=== PATIENT | male | born 1955 | race Caucasian/White ===

== ENCOUNTER 2022-12-17 11:07 | Inpatient (IN) | payer MEDICARE, OTHER ==
[~2022-12-17] VITALS: Ht 175.3 cm; Wt 79.4 kg
--- NOTE | 2022-12-17 11:25 | NUR ---
RADHA FROM SNF FOR AGITATION AND AGRESSIVE BEHAVIOR TOWARDS STAFF SINCE YESTERDAY. PLACED PT ON GOWN.
--- NOTE | 2022-12-17 11:30 | NUR ---
SECURITY AT BEDSIDE FOR WANDING
--- NOTE | 2022-12-17 11:31 | NUR ---
[facility]
[2022-12-17] MEDS ORDERED: LORA-259 PO (12:05)
[2022-12-17] MEDS ORDERED: MAGN400O6 PO (12:05)
[2022-12-17] MEDS ORDERED: OLAN10TA3 PO (12:05)
[2022-12-17] MEDS ORDERED: FINA5TAB11 PO (12:05)
[2022-12-17] MEDS ORDERED: NIFE30TA2 PO (12:05)
[2022-12-17] MEDS ORDERED: LOSA50TA39 PO (12:05)
[2022-12-17] MEDS ORDERED: BISA10SU11 RC (12:05)
[2022-12-17] MEDS ORDERED: TAMS-12 PO (12:05)
[2022-12-17] MEDS ORDERED: NA P133E RC (12:05)
[2022-12-17] MEDS ORDERED: ACET-868 PO (12:05)
[2022-12-17] MEDS ORDERED: DIVA250T4 PO (12:05)
[2022-12-17] MEDS ORDERED: VALB40CA2 PO (12:05)
[2022-12-17 12:22] LABS: ALANINE AMINOTRANSFERASE 14 U/L (12-78); ALBUMIN 3.3 g/dL (3.4-5.0); ALCOHOL, BLOOD < 3 mg/dL (0-10); ALKALINE PHOSPHATASE 74 U/L (46-116); ASPARTATE AMINOTRANSFERASE 14 U/L (15-37); BILIRUBIN,DIRECT 0.1 mg/dL (0.0-0.2); BILIRUBIN,TOTAL 0.2 mg/dL (0.2-1.0); CALCIUM, SERUM 9.4 mg/dL (8.5-10.1); CARBON DIOXIDE 28 mmol/L (21-32); CHLORIDE 102 mmol/L (98-107); CREATININE 0.7 mg/dL (0.6-1.3); GLUCOSE 76 mg/dL (74-106); POTASSIUM 3.8 mmol/L (3.5-5.1); SODIUM SERUM 137 mmol/L (136-145); TOTAL PROTEIN, SERUM 7.3 g/dL (6.4-8.2); UREA NITROGEN, BLOOD 7 mg/dL (7-18)
[2022-12-17 12:24] LABS: BASOPHILS % (AUTO) 0.5 % (0.0-2.0); EOSINOPHILS % (AUTO) 0.9 % (0.0-6.0); HEMATOCRIT 38 % (39-51); HEMOGLOBIN 12.7 g/dL (13.5-17.5); LYMPHOCYTES # (AUTO) 1.1 K/uL (0.8-4.8); LYMPHOCYTES % (AUTO) 16.7 % (20.0-44.0); MEAN CORPUSCULAR HGB CONC 34 g/dl (31.0-36.0); MEAN CORPUSCULAR VOLUME 87 fL (80-96); MONOCYTES # (AUTO) 0.7 K/uL (0.1-1.30); NEUTROPHILS # (AUTO) 4.8 K/uL (1.8-8.9); NEUTROPHILS % (AUTO) 71.9 % (43.0-81.0); PLATELET COUNT (AUTO) 271 K/uL (150-450); RED BLOOD CELL COUNT(AUTO) 4.35 MIL/uL (4.5-6.0); WHITE BLOOD COUNT (AUTO) 6.7 K/uL (4.3-11.0)
--- NOTE | 2022-12-17 12:45 | NUR ---
URINE COLLECTED AND SENT TO LAB.
[2022-12-17 13:10] LABS: BILIRUBIN,URINE NEGATIVE (NEGATIVE); COLOR,URINE YELLOW (YELLOW); LEUKOCYTE ESTERASE ,URINE 3+ (NEGATIVE); NITRITE, URINE NEGATIVE (NEGATIVE); PROTEIN,URINE NEGATIVE (NEGATIVE); UGLUCOSE NEGATIVE (NEGATIVE); UROBILINOGEN,URINE 0.2 EU/dL (0.2)
[2022-12-17 13:46] LABS: BACTERIA,URINE Few /HPF (None Seen); RBC,URINE NONE SEEN /HPF (0-2); SQUAMOUS EPITHELIAL CELL,UR Few /HPF (None Seen)
--- NOTE | 2022-12-17 15:11 | NUR ---
BED ASSIGNED 309.2, ADMITTING AWARE
--- NOTE | 2022-12-17 15:27 | NUR ---
RIGHT FOREARM IV 20G
[2022-12-17] MEDS ORDERED: ACETAMINOPHEN 325 MG TABLET PO PRN ×2 (15:30)
[2022-12-17] MEDS ORDERED: Z GUARD REMEDY 4 OZ OINT TP PRN (15:30)
[2022-12-17] MEDS ORDERED: ONDANSETRON HCL/PF 4 MG/2 ML VIAL IVP PRN (15:30)
[2022-12-17] MEDS ORDERED: NA PHOS,M-B/NA PHOS,DI-BA 1 EA ENEMA RC PRN (15:30)
[2022-12-17] MEDS ORDERED: IV NS 0.9% 1,000 ML IV PRN (15:30)
[2022-12-17] MEDS ORDERED: MAGNESIUM HYDROXIDE 30 ML UDC PO PRN (15:30)
[2022-12-17] MEDS ORDERED: ZOLPIDEM TARTRATE 5 MG TABLET PO PRN (15:30)
[2022-12-17] MEDS ORDERED: MAG HYDROX/AL HYDROX/SIMETH 30 ML UDC PO PRN (15:30)
[2022-12-17] MEDS ORDERED: BISACODYL SUPP (10 MG) 10 MG/SUPP.RECT SUPP.RECT RC PRN (15:30)
--- NOTE | 2022-12-17 15:36 | NUR ---
GAVE REPORT TO TAMMY ROBERTS FOR CONTINUATION OF CARE.
[2022-12-17 16:00] VITALS: BP 135/99
[2022-12-17] MEDS ORDERED: CEFTRIAXONE 1 G in IV D5W 50 ML IV SCH (16:00)
--- NOTE | 2022-12-17 16:00 | NUR ---
PHOTOLETTERING MACHINE OPERATOR NOTES Received patient from ER via [facility]. Patient is a/o x1, with episodes of confusion. Patient oriented to room and how to use thecall light. On room air, breathing even and unlabored. NO SOB or s/s of distress noted. Refused inventory of belongings. IV access on GUNNER #20G sl, patent, intact and flushing well. Patient refuses skin assessment. Safety precautions in place: bed in low, locked position; siderails up x 2. Call light within reach. Will continue to monitor the patient.
--- NOTE | 2022-12-17 17:00 | NUR ---
RN NOTE PATIENT REFUSED IV ANTIBIOTIC, PULLED OUT IV LINE AND AGITATED.CHARGED NURSE AWARE. INFORMED DR. DOWNEY WITH ORDERS MADE TO GIVE ATIVAN IM Q6H PRN. PSYCH CONSULT PLACED, FACE SHEET FAXED OVER TO [employer]. WILL CONTINUE TO MONITOR PATIENT
[2022-12-17] MEDS: OLANZAPINE 10 MG TABLET PO SCH (17:10)
[2022-12-17] MEDS: DIVALPROEX SODIUM 250 MG TABLET.DR PO SCH (17:10)
--- NOTE | 2022-12-17 19:30 | NUR ---
MS RN OPENING NOTE RECEIVED PATIENT IN BED, AWAKE, ALERT AND ORIENTED X2. PATIENT IS A NEW ADMIT AND PER REPORT FROM OUTGOING SHIFT, PATIENT REFUSED TO BE ASSESSED AND WAS REFUSING CARE. HE HAS SEVERAL BAGS WITH HIM BUT PATIENT REFUSED TO BE CHECKED AND SCREAMS AT THE STAFFS WHEN TRYING TO PROVIDE CARE/GIVING MEDICATIONS. HE ALSO PULLED OUT HIS IV AND WAS REFUSING REINSERTION. PATIENT CLAIMED THAT HE DIDN'T HAVE HIS DINNER YET, OFFERED SANDWICH AND JUICE. PATIENT IS AMBULATORY. SAFETY MEASURES IN PLACE. KEPT BED IN LOCKED AND IN LOW POSITION. SIDE RAILS UP X2. ADVISED TO USE THE CALL LIGHT WHEN IN NEED OF ASSISTANCE.
--- NOTE | 2022-12-17 19:30 | NUR ---
RN CLOSING NOTES Patient is a/o x1, with episodes of confusion.On room air, breathing even and unlabored. NO SOB or s/s of distress noted. Patient removed IV line. Oral medications ordered, refuses IV antibiotics. PRN ativan administered. Safety precautions in place: bed in low, locked position; siderails up x 2. Call light within reach. Will endorse to night warehouse manager nurse.
[2022-12-17] MEDS ORDERED: LORAZEPAM INJ 2 MG/ML VIAL IV PRN (20:00)
[2022-12-17] MEDS ORDERED: LORAZEPAM INJ 2 MG/ML VIAL IM PRN (20:00)
[2022-12-17] MEDS: TAMSULOSIN 0.4 MG CAP.SR.24H PO SCH (21:17)
[2022-12-17] MEDS ORDERED: Medication Not On Formulary EA (Valbenazine Tosylate (Ingrezza) 40 MG) PO SCH (22:00)
--- NOTE | 2022-12-18 06:30 | NUR ---
MS RN CLOSING NOTE PATIENT IN BED, SLEEPING INTERMITTENTLY. CONFUSED AND AGITATED MOST OF THE SHIFT. AFEBRILE AND NOT IN ANY FORM OF ACUTE DISTRESS. BREATHING EVEN AND NON LABORED. REFUSED IV REINSERTION AND IV FLUIDS. ALSO REFUSING CARE AND VITALS TO BE TAKEN. DUE MEDS GIVEN. REORIENTED CONSTANTLY. SAFETY MEASURES IN PLACE. KEPT BED IN LOCKED AND IN LOW POSITION. SIDE RAILS UP X2. ADVISED TO USE THE CALL LIGHT WHEN IN NEED OF ASSISTANCE. ALL NURSING NEEDS ATTENDED. ENDORSED TO INCOMING SHIFT FOR CONTINUITY OF CARE.
--- NOTE | 2022-12-18 07:52 | NUR ---
RN OPENING NOTE RECEIVED PATIENT ALERT AND ORIENTED, ABLE TO RESPONDS ALL PHYSICAL STIMULI. RESPIRATORY EVEN AND UNLABORED IN ROOM AIR. IN NO ACUTE RESPIRATORY DISTRESS OBSERVED. SKIN IS WARM TO TOUCH, KEEP CLEAN/DRY. KEPT ELEVATED HOB FOR ASPIRATION PRECAUTION/ENSURE AIRWAY, ALSO LOWEST BED POSITIONED. BED ALARM IS ON AT ALL TIMES FOR SAFETY. CALL LIGHT WITHIN REACH, WILL CONTINUE TO MONITOR.
[2022-12-18] MEDS: FINASTERIDE (5 MG) 5 MG TABLET PO SCH (09:00)
[2022-12-18] MEDS: NIFEdipine XL (30MG) 30 MG TAB PO SCH ×2 (09:00→16:55)
[2022-12-18] MEDS: DIVALPROEX SODIUM 250 MG TABLET.DR PO SCH ×3 (09:00→16:55)
[2022-12-18] MEDS ORDERED: MAGNESIUM HYDROXIDE 30 ML UDC PO SCH (09:00)
[2022-12-18] MEDS: OLANZAPINE 10 MG TABLET PO SCH ×3 (09:00→16:55)
[2022-12-18] MEDS: LOSARTAN POTASSIUM 50 MG TABLET PO SCH ×2 (09:00→16:55)
--- NOTE | 2022-12-18 09:14 | NUR ---
PATIENT REFUSED TO TAKE VITAL SIGNS AND ALL MEDICATIONS DUE THIS MORNING. INFORMED MD REGARDING ABOVE.
--- NOTE | 2022-12-18 15:37 | NUR ---
PATIENT REMOVED IV LINE AND REFUSED IV RE-INSERT. NEW ORDER D/C ROCEPHIN IV PIGGY BAG, AND START LEVAQUIN 500MG PO DAILY. NOTED AND CARRY OUT.
[2022-12-18] MEDS: LEVOFLOXACIN (250MG) 250 MG TABLET PO SCH (16:00)
[2022-12-18 18:27] VITALS: BP 170/104
--- NOTE | 2022-12-18 18:50 | NUR ---
RN CLOSING NOTE PATIENT RESTING IN BED. IN NO ACUTE DISTRESS OBSERVED. ALSO NO SI/HI OBSERVED. RESPIRATORY EVEN AND UNLABORED IN ROOM AIR, NO SOB OR DESATURATION NOTED. SKIN IS WARM TO TOUCH KEEP CLEAN/DRY. KEPT ELEVATED HOB FOR ENSURE AIRWAY/ASPIRATION PRECAUTION. BED ALARM IS ON AT ALL TIMES FOR SAFETY. CALL LIGHT WITHIN REACH, WILL ENDORSE STAVE MILL HAND.
--- NOTE | 2022-12-18 19:30 | NUR ---
MS RN OPENING NOTE RECEIVED PATIENT, PACING AROUND HIS ROOM. RON RT AND ORIENTED X2. AFEBRILE AND NOT IN ANY FORM OF ACUTE DISTRESS. BREATHING EVEN AND NON LABORED. PER REPORT, PATIENT STILL REFUSING MEDICATIONS AND PULLED OUT HIS IV ACCESS, MD AWARE ABOUT THE SITUATION. SAFETY MEASURES IN PLACE. KEPT BED IN LOCKED AND IN LOW POSITION. SIDE RAILS UP X2. ADVISED TO USE THE CALL LIGHT WHEN IN NEED OF ASSISTANCE. CONSTANTLY REORIENTED.
[2022-12-18] MEDS: TAMSULOSIN 0.4 MG CAP.SR.24H PO SCH (21:10)
[2022-12-19 06:28] LABS: BASOPHILS % (AUTO) 0.6 % (0.0-2.0); EOSINOPHILS % (AUTO) 1.4 % (0.0-6.0); HEMATOCRIT 36 % (39-51); HEMOGLOBIN 12.3 g/dL (13.5-17.5); LYMPHOCYTES # (AUTO) 1.9 K/uL (0.8-4.8); LYMPHOCYTES % (AUTO) 22.7 % (20.0-44.0); MEAN CORPUSCULAR HGB CONC 35 g/dl (31.0-36.0); MEAN CORPUSCULAR VOLUME 87 fL (80-96); MONOCYTES % (AUTO) 11.8 % (2.0-12.0); NEUTROPHILS # (AUTO) 5.2 K/uL (1.8-8.9); NEUTROPHILS % (AUTO) 63.5 % (43.0-81.0); PLATELET COUNT (AUTO) 254 K/uL (150-450); RED BLOOD CELL COUNT(AUTO) 4.09 MIL/uL (4.5-6.0); WHITE BLOOD COUNT (AUTO) 8.2 K/uL (4.3-11.0)
--- NOTE | 2022-12-19 06:30 | NUR ---
MS RN CLOSING NOTE PATIENT IN BED, SLEEPING INTERMITTENTLY DURING THE SHIFT. STILL NOTED WITH CONFUSION AND REFUSAL OF CARE. AFEBRILE AND NOT IN ANY FORM OF ACUTE DISTRESS. BREATHING EVEN AND NON LABORED. MEDICATED ORDERED. REORIENTED AND REDIRECTED CONSTANTLY. SAFETY MEASURES IN PLACE. KEPT BED IN LOCKED AND IN LOW POSITION. SIDE RAILS UP X2. ADVISED TO USE THE CALL LIGHT WHEN IN NEED OF ASSISTANCE. ALL NURSING NEEDS ATTENDED. ENDORSED TO INCOMING SHIFT FOR CONTINUITY OF CARE.
[2022-12-19 06:47] LABS: CALCIUM, SERUM 9.5 mg/dL (8.5-10.1); CREATININE 0.7 mg/dL (0.6-1.3); POTASSIUM 4.2 mmol/L (3.5-5.1)
--- NOTE | 2022-12-19 07:05 | NUR ---
MS RN OPENING NOTE RECEIVED PATIENT AWAKE, AMBULATING IN THE HALLWAY, HYPERVERBAL, DEMANDING WITH BOUTS OF CONFUSION. AFEBRILE AND NOT IN ANY FORM OF ACUTE DISTRESS. BREATHING EVEN AND NON LABORED. PATIENT NEEDS CONSTANT ATTENTION, REORIENTATION AND REDIRECTION. SAFETY MEASURES IN PLACE. WILL CONTINUE TO MONITOR THE PATIENT
[2022-12-19] MEDS: OLANZAPINE 10 MG TABLET PO SCH ×2 (08:12→17:00)
[2022-12-19] MEDS: DIVALPROEX SODIUM 250 MG TABLET.DR PO SCH ×2 (08:12→17:00)
[2022-12-19] MEDS: LOSARTAN POTASSIUM 50 MG TABLET PO SCH (08:13)
[2022-12-19] MEDS: FINASTERIDE (5 MG) 5 MG TABLET PO SCH (08:16)
[2022-12-19] MEDS: NIFEdipine XL (30MG) 30 MG TAB PO SCH (08:17)
[2022-12-19] MEDS ORDERED: CLONIDINE HCL 0.1 MG TABLET PO PRN (09:30)
[2022-12-19] MEDS: LEVOFLOXACIN (250MG) 250 MG TABLET PO SCH ×2 (15:12→15:45)
--- NOTE | 2022-12-19 15:51 | NUR ---
Patient refused levaquin 250mg x 2tabs, Q24H, PO. Medications offered twice on separate occasions. In both occasions, patient was educated of risks and benefits of taking his prescribed medications. Charge nurse made aware, informed
--- NOTE | 2022-12-19 17:30 | NUR ---
Patient refused due medications; olanzapine and depakote as prescribed. Educated patient about risks and benefits of taking his medications on time, patient still refused, charge nurse and MD made aware
--- NOTE | 2022-12-19 19:00 | NUR ---
MS RN OPENING NOTE PATIENT IS SLEEPING IN BED, EASILY BEING AROUSED. PT IS ALERT AND ORIENTED, AO X2. HE IS CONFUSED AND AGITATED. PT IS ON RA, TOLERATED WELL; NO S/S OF DISTRESS OR SOB. PT IS ABLE TO VERBALIZE HIS NEEDS. PT REFUSED HAVING IV ACCESS. ACCORDING TO CHANGE SHIFT REPORT, PT REFUSED MEDICATIONS WELL. SAFETY MEASURES ARE IN PLACED: BED IN LOWEST AND LOCKED POSITION; SIDE RAILS UP X 2; CALL LIGHT AND TABLE ARE WITHIN EASY REACH.
--- NOTE | 2022-12-19 19:03 | NUR ---
MS RN CLOSING NOTE PATIENT IN BED, AWAKE, NOTED WITH CONFUSION AND REFUSAL OF CARE. AMBULATING MOSTLY AMBULATING DURING DAYSHIFT, AFEBRILE AND NOT IN ANY FORM OF ACUTE DISTRESS. BREATHING EVEN AND NON LABORED. MEDICATED ORDERED, SOME MEDICATIONS REFUSED, REORIENTED AND REDIRECTED CONSTANTLY. SAFETY MEASURES IN PLACE. KEPT BED IN LOCKED AND IN LOW POSITION. SIDE RAILS UP X2. ADVISED TO USE THE CALL LIGHT WHEN IN NEED OF ASSISTANCE. ALL NURSING NEEDS ATTENDED. ENDORSED TO INCOMING SHIFT FOR CONTINUITY OF CARE.
--- NOTE | 2022-12-19 19:24 | NUR ---
Patient's Ingrezza, 40mg, po, hs medication that's still pending recon has been approved for dc by Dr Dalton. The said medication cannot be provided by both patient and SNF where patient came from. Patient has no next of kin traceable on file, SNF included. Charge nurse navarro, informed
[2022-12-19 20:00] VITALS: BP 128/71
[2022-12-19] MEDS: TAMSULOSIN 0.4 MG CAP.SR.24H PO SCH (21:52)
--- NOTE | 2022-12-19 21:53 | NUR ---
MS RN NOTE Patient refused medication, FLOMAX 0.4 MG, due at 2200. Educated the patient about the importance of medication regimen, pt still refused.
--- NOTE | 2022-12-19 21:56 | NUR ---
MS RN NOTE RETURNED THE MEDICATION, FLOMAX, TO [facility].
--- NOTE | 2022-12-20 06:38 | NUR ---
MS RN OPENING NOTE PATIENT IS SLEEPING IN BED, EASILY BEING AROUSED. PT IS ALERT AND ORIENTED, AO X2. HE IS CONFUSED. PT IS ON RA, TOLERATED WELL; NO S/S OF DISTRESS OR SOB. PT IS ABLE TO VERBALIZE HIS NEEDS. PT REFUSED HAVING IV ACCESS. PT REFUSED MEDICATIONS DUE AT 2200. SAFETY MEASURES ARE IN PLACED: BED IN LOWEST AND LOCKED POSITION; SIDE RAILS UP X 2; CALL LIGHT AND TABLE ARE WITHIN EASY REACH. WILL ENDORSE NEXT SHIFT NURSE FOR CONTINUING PT CARE. Addendum: 12/20/22 at 0643 by HARDEEP ESCAMILLA RN MS RN CLOSING NOTE
--- NOTE | 2022-12-20 07:15 | NUR ---
MS RN OPENING NOTE RECEIVED PATIENT AWAKE, HYPERVERBAL, REFUSED ROUTINE VITALS, WITH BOUTS OF CONFUSION. AFEBRILE AND NOT IN ANY FORM OF ACUTE DISTRESS. BREATHING EVEN AND NON LABORED. PATIENT NEEDS CONSTANT ATTENTION, REORIENTATION AND REDIRECTION. SAFETY MEASURES IN PLACE. WILL CONTINUE TO MONITOR THE PATIENT
[2022-12-20] MEDS: OLANZAPINE 10 MG TABLET PO SCH (09:20)
[2022-12-20] MEDS: DIVALPROEX SODIUM 250 MG TABLET.DR PO SCH (09:20)
[2022-12-20] MEDS: NIFEdipine XL (30MG) 30 MG TAB PO SCH (09:21)
[2022-12-20] MEDS: LOSARTAN POTASSIUM 50 MG TABLET PO SCH (09:21)
[2022-12-20] MEDS: FINASTERIDE (5 MG) 5 MG TABLET PO SCH (09:22)
[2022-12-20 11:30] VITALS: BP 145/92
[2022-12-20] MEDS: LORAZEPAM 1 MG TABLET PO PRN (12:34)
--- NOTE | 2022-12-20 13:17 | NUR ---
Patient discharge by MD, stable upon discharged, A/O x2-3, confused, hyperverbal, with bouts of anxieties. Given lorazepam 1mg, 1tab, po, prn as ordered. Security was alerted due to patient's increased anxiety as he is about to leave the hospital. Discharged instructions was given both verbally and in writing to the patient, SNF and later to two check cashier who arrived to transport the patient to SNF. All belongings accounted for. All safety protocols in placed, maintaining patient's safety as priority. Patient left the hospital at approximately 1314, via gurney with two check cashier assisted by [facility] security personnel.
== END 2022-12-20 13:15 | DRG 689 ==
LOC: ER 12:32 → MED 15:38
PROVIDERS: ADMIT Internal Medicine
DX: N39.0 Urinary tract infection, site not specified (principal); E43 Unspecified severe protein-calorie malnutrition; G93.41 Metabolic encephalopathy; D64.9 Anemia, unspecified; E88.09 Other disorders of plasma-protein metabolism, not elsewhere classified; F25.9 Schizoaffective disorder, unspecified; N40.1 Benign prostatic hyperplasia with lower urinary tract symptoms; Z68.25 Body mass index [BMI] 25.0-25.9, adult; B96.89 Other specified bacterial agents as the cause of diseases classified elsewhere
CPT/HCPCS: 36415; 80048-TC; 80076-TC; 81001; 85025-TC; 87081-TC; 87086-TC; A4223; G0378; G0480; J0696; J2060; J7050; J7060

== ENCOUNTER 2024-01-30 13:42 | Inpatient (IN) | payer MEDICARE, OTHER ==
[~2024-01-30] VITALS: Ht 180.3 cm; Wt 76.7 kg
[~2024-01-30 13:42] MED LIST: ACET-868 PO; BISA10SU11 RC; DIVA250T4 PO; FINA5TAB11 PO; LORA-259 PO; LOSA50TA39 PO; MAGN400O6 PO; NA P133E RC; NIFE30TA2 PO; OLAN10TA3 PO; TAMS-12 PO; VALB40CA2 PO
[2024-01-30] MEDS ORDERED: DIVA-78 PO (14:45)
[2024-01-30] MEDS ORDERED: IPRA4AER IH (14:45)
[2024-01-30] MEDS ORDERED: UREA71CR TP (14:45)
[2024-01-30] MEDS ORDERED: LORA2DIS4 IM (14:45)
[2024-01-30] MEDS ORDERED: MULT-213 PO (14:45)
[2024-01-30] MEDS ORDERED: LOSA25TA27 PO (14:45)
[2024-01-30] MEDS ORDERED: HALO50AM2 IM (14:45)
[2024-01-30] MEDS ORDERED: FURO-145 PO (14:45)
[2024-01-30 14:47] LABS: BASOPHILS % (AUTO) 0.6 % (0.0-2.0); EOSINOPHILS # (AUTO) 0.1 K/uL (0.0-0.7); EOSINOPHILS % (AUTO) 1.4 % (0.0-6.0); HEMATOCRIT 36 % (39-51); HEMOGLOBIN 12.2 g/dL (13.5-17.5); LYMPHOCYTES # (AUTO) 1.1 K/uL (0.8-4.8); LYMPHOCYTES % (AUTO) 15.6 % (20.0-44.0); MEAN CORPUSCULAR HEMOGLOBIN 29 PG (26.0-33.0); MEAN CORPUSCULAR HGB CONC 34 g/dl (31.0-36.0); MEAN CORPUSCULAR VOLUME 85 fL (80-96); MONOCYTES # (AUTO) 0.6 K/uL (0.1-1.30); MONOCYTES % (AUTO) 8.6 % (2.0-12.0); NEUTROPHILS # (AUTO) 5.2 K/uL (1.8-8.9); NEUTROPHILS % (AUTO) 73.8 % (43.0-81.0); PLATELET COUNT (AUTO) 265 K/uL (150-450); RED BLOOD CELL COUNT(AUTO) 4.24 MIL/uL (4.5-6.0); RED CELL DISTRIBUTION WIDTH 15.7 % (11.5-15.0)
[2024-01-30 14:55] LABS: CALCIUM, SERUM 8.9 mg/dL (8.5-10.1); CARBON DIOXIDE 27 mmol/L (21-32); CHLORIDE 94 mmol/L (98-107); CREATININE 0.8 mg/dL (0.6-1.3); GLUCOSE 77 mg/dL (74-106); POTASSIUM 3.1 mmol/L (3.5-5.1); SODIUM SERUM 127 mmol/L (136-145); UREA NITROGEN, BLOOD 7 mg/dL (7-18)
[2024-01-30 15:01] LABS: ALANINE AMINOTRANSFERASE 15 U/L (12-78); ALCOHOL, BLOOD < 3 mg/dL (0-10); ALKALINE PHOSPHATASE 79 U/L (46-116); ASPARTATE AMINOTRANSFERASE 14 U/L (15-37); BILIRUBIN,DIRECT 0.1 mg/dL (0.0-0.2); BILIRUBIN,TOTAL 0.3 mg/dL (0.2-1.0); TOTAL PROTEIN, SERUM 7.3 g/dL (6.4-8.2)
[2024-01-30 15:02] LABS: ACETAMINOPHEN 0 ug/ml (10-30); SALICYLATE 1.6 mg/dL (2.8-20.0)
[2024-01-30 15:31] LABS: APPEARANCE,URINE Clear (CLEAR); BILIRUBIN,URINE Negative (NEGATIVE); BLOOD, URINE Negative Ery/uL (NEGATIVE); COLOR,URINE YELLOW (YELLOW); KETONES,URINE Negative (NEGATIVE); LEUKOCYTE ESTERASE ,URINE Negative (NEGATIVE); NITRITE, URINE Negative (NEGATIVE); PROTEIN,URINE Negative (NEGATIVE); UGLUCOSE Negative (NEGATIVE); UROBILINOGEN,URINE 0.2 EU/dL (0.2)
[2024-01-30 15:41] LABS: AMPHETAMINE, URINE NEGATIVE (NEGATIVE); BARBITURATE, URINE NEGATIVE (NEGATIVE); BENZODIAZEPINE, URINE NEGATIVE (NEGATIVE); CANNABINOID, URINE NEGATIVE (NEGATIVE); COCCAINE, URINE NEGATIVE (NEGATIVE); OPIATE, URINE NEGATIVE (NEGATIVE); PHENCYCLIDINE SCREEN,URINE NEGATIVE (NEGATIVE)
[2024-01-30] MEDS ORDERED: diphenhydrAMINE HCL 50 MG/ML VIAL ONE (15:48)
[2024-01-30] MEDS ORDERED: OLANZAPINE 10 MG VIAL IM ONE ×2 (15:48→16:43)
[2024-01-30] MEDS: diphenhydrAMINE HCL 50 MG/ML VIAL IM ONE (15:57)
[2024-01-30] MEDS: OLANZAPINE 10 MG VIAL IM ONE ×2 (15:57→16:49)
[2024-01-30] MEDS ORDERED: LORAZEPAM INJ 2 MG/ML VIAL ONE (16:37)
[2024-01-30] MEDS: LORAZEPAM INJ 2 MG/ML VIAL IM/IV ONE (16:41)
[2024-01-30] MEDS ORDERED: WATER FOR INJECTION,STERILE 10 ML ONE (16:46)
[2024-01-30] MEDS ORDERED: ACETAMINOPHEN 325 MG TABLET PO PRN (20:30)
[2024-01-30] MEDS ORDERED: MAGNESIUM HYDROXIDE 30 ML UDC PO PRN (20:30)
[2024-01-30] MEDS ORDERED: MAG HYDROX/AL HYDROX/SIMETH 30 ML UDC PO PRN (20:30)
[2024-01-30] MEDS ORDERED: clonazePAM 0.5 MG TABLET PO PRN (20:30)
[2024-01-30] MEDS: BLOOD SUGAR DIAGNOSTIC 1 EACH STRIP IN ONE (20:57)
[2024-01-30 21:23] VITALS: BP 159/82; TEMP 97.9; O2SAT 99
[2024-01-30] MEDS: POTASSIUM CHLORIDE 20 MEQ TAB.PRT.SR PO ONE (22:59)
[2024-01-30] MEDS ORDERED: Medication Not On Formulary EA (Ipratropium/Albuterol Sulfate (Combivent Respimat 20-100 IH PRN (23:30)
[2024-01-30] MEDS ORDERED: IPRATROPIUM NEB FS 0.5 MG/2.5 ML AMPUL.NEB NEB PRN (23:45)
[2024-01-30] MEDS ORDERED: ALBUTEROL FS 2.5 MG/3 ML VIAL.NEB NEB PRN (23:45)
[2024-01-31 08:00] VITALS: BP 162/87; TEMP 97.7; O2SAT 99
[2024-01-31] MEDS: NIFEdipine XL (30MG) 30 MG TAB PO SCH (08:12)
[2024-01-31] MEDS: FINASTERIDE (5 MG) 5 MG TABLET PO SCH (08:13)
[2024-01-31] MEDS: FUROSEMIDE 20 MG TABLET PO SCH (08:13)
[2024-01-31] MEDS: LOSARTAN POTASSIUM 25 MG TABLET PO SCH (08:13)
[2024-01-31] MEDS: MULTIVIT W/MINERALS 1 TAB TABLET PO SCH (08:13)
[2024-01-31] MEDS ORDERED: clonazePAM 0.5 MG TABLET PO PRN (13:30)
[2024-01-31] MEDS: OLANZAPINE ZYDIS 5 MG TAB.RAPDIS SL ONE (14:46)
[2024-01-31 16:00] VITALS: BP 159/87; TEMP 98.3; O2SAT 99
[2024-01-31] MEDS: clonazePAM 0.5 MG TABLET PO SCH (16:26)
[2024-01-31 20:00] VITALS: BP 136/87; TEMP 98.1; O2SAT 96; O2SAT 99
[2024-01-31] MEDS: DIVALPROEX SODIUM 500 MG TABLET.DR PO SCH (21:12)
[2024-01-31] MEDS: TAMSULOSIN 0.4 MG CAP.SR.24H PO SCH (21:52)
[2024-02-01] MEDS: TEMAZEPAM 7.5 MG CAPSULE PO PRN (01:08)
[2024-02-01 08:00] VITALS: BP 159/90; TEMP 97.9; O2SAT 98
[2024-02-02 08:00] VITALS: BP 150/119; TEMP 98; O2SAT 98
[2024-02-02] MEDS: BENZTROPINE MESYLATE (1 MG) 1 MG TABLET PO SCH (08:06)
[2024-02-02] MEDS: HALOPERIDOL 1 MG TABLET PO SCH (09:01)
[2024-02-02 21:00] VITALS: BP 130/80; TEMP 98; O2SAT 98
[2024-02-03 08:00] VITALS: BP 134/68; TEMP 97.8; O2SAT 98
[2024-02-03 16:00] VITALS: BP 159/106; TEMP 98.4; O2SAT 98
[2024-02-03 20:00] VITALS: BP 128/67; TEMP 97.6; O2SAT 96
[2024-02-04 07:39] LABS: CALCIUM, SERUM 8.7 mg/dL (8.5-10.1); CREATININE 0.7 mg/dL (0.6-1.3); MAGNESIUM 1.6 mg/dL (1.8-2.4); PHOSPHORUS 2.8 mg/dL (2.5-4.9); POTASSIUM 3.5 mmol/L (3.5-5.1)
[2024-02-04 08:00] VITALS: BP 123/74; TEMP 98.7; O2SAT 99
[2024-02-04 08:12] LABS: THYROID STIMULATING HORMONE 2.99 uIU/mL (0.358-3.74); URIC ACID 3.8 mg/dL (2.6-7.2)
[2024-02-04] MEDS: MAGNESIUM OXIDE 400 MG TABLET PO ONE (11:52)
[2024-02-04 16:00] VITALS: BP 141/91; TEMP 97.9; O2SAT 99
[2024-02-04 20:15] LABS: URINE SODIUM, RANDOM 30 mmol/l (40-220)
[2024-02-04 20:37] VITALS: BP 129/83; TEMP 98.1; O2SAT 96
[2024-02-05 08:00] VITALS: BP 126/86; TEMP 97.7; O2SAT 97
[2024-02-05] MEDS: HALOPERIDOL DECANOATE IM 100 MG/ML AMPUL IM ONE (09:30)
[2024-02-05 11:46] LABS: CALCIUM, SERUM 8.4 mg/dL (8.5-10.1); CREATININE 0.7 mg/dL (0.6-1.3); POTASSIUM 3.8 mmol/L (3.5-5.1)
[2024-02-05 15:52] LABS: OSMOLALITY,URINE 190 mOS/kg (340-1090)
[2024-02-05 16:00] VITALS: BP 116/80; TEMP 97.9; O2SAT 97
[2024-02-05 19:57] VITALS: BP 118/80; TEMP 98; O2SAT 97
[2024-02-05 21:36] VITALS: BP 118/80; TEMP 98; O2SAT 97
[2024-02-06 08:00] VITALS: BP 142/99; TEMP 97.8; O2SAT 98
[2024-02-06] MEDS: SODIUM CHLORIDE 1000 MG TABLET PO SCH (12:15)
[2024-02-06 16:00] VITALS: BP 137/90; TEMP 98.9; O2SAT 97
[2024-02-06 20:35] VITALS: BP 150/83; TEMP 97.9; O2SAT 99
[2024-02-07 07:44] LABS: CREATININE 0.8 mg/dL (0.6-1.3); POTASSIUM 3.9 mmol/L (3.5-5.1)
[2024-02-07 08:00] VITALS: BP 148/89; TEMP 98; O2SAT 98
[2024-02-07 16:00] VITALS: BP 146/82; TEMP 97.8; O2SAT 97
[2024-02-08] MEDS: HALOPERIDOL LACTATE INJ 5 MG/ML VIAL IM ONE (08:34)
[2024-02-08] MEDS: diphenhydrAMINE HCL 50 MG/ML VIAL IM ONE (08:34)
[2024-02-08] MEDS: LORAZEPAM INJ 2 MG/ML VIAL IM ONE (08:34)
[2024-02-09 08:00] VITALS: BP 144/77; TEMP 97.7; O2SAT 97
[2024-02-09 08:52] VITALS: BP 144/77
== END 2024-02-09 14:43 | DRG 885 ==
LOC: ER 13:53 → GPS 16:31
PROVIDERS: ADMIT Psychiatry & Neurology Psychiatry; ATTEND Nurse Practitioner Family
DX: F29 Unspecified psychosis not due to a substance or known physiological condition (principal); E87.1 Hypo-osmolality and hyponatremia; E44.0 Moderate protein-calorie malnutrition; F06.71 Mild neurocognitive disorder due to known physiological condition with behavioral disturbance; E87.6 Hypokalemia; G62.9 Polyneuropathy, unspecified; J44.9 Chronic obstructive pulmonary disease, unspecified; D64.9 Anemia, unspecified; E83.42 Hypomagnesemia; E88.09 Other disorders of plasma-protein metabolism, not elsewhere classified; F20.9 Schizophrenia, unspecified; F32.A Depression, unspecified; F41.9 Anxiety disorder, unspecified; I10 Essential (primary) hypertension; Z20.822 Contact with and (suspected) exposure to COVID-19; N40.0 Benign prostatic hyperplasia without lower urinary tract symptoms; Z73.6 Limitation of activities due to disability; Z68.23 Body mass index [BMI] 23.0-23.9, adult; Z79.899 Other long term (current) drug therapy
CPT/HCPCS: 36415; 70450-TC; 80048-TC; 80076-TC; 82962-TC; 83735-TC; 83935-TC; 84100-TC; 84300-TC; 84443-TC; 84484-TC; 84550-TC; 85025-TC; 97112-TC; 97116-TC; 97530-TC; G0480; J1200; J1630; J1631; J2060; J3490